=== PATIENT | female | born 1960 | race Caucasian/White ===

== ENCOUNTER 2024-04-23 08:59 | Outpatient (CLI) | payer MEDICARE, OTHER, SELFPAY ==
--- NOTE | 2024-04-23 | CT_ITS ---
CT CALCIUM SCORE REASON FOR VISIT: FAMILY HX OF PREMATURE CHO/HYPERLIPIDEMIA; Coronary artery disease risk assessment COMPARISON: None TECHNIQUE: Noncontrast coronary CT in combination with quantitative analysis performed on a separate workstation were used to determine CACS (Agatston score) TOTAL EXAM DOSE: 34.87 mGy.cm ECG GATING: Prospective SCAN RANGE: Pulmonary artery bifurcation to Inferior aspect of heart COMPLICATIONS: None FINDINGS: Technical Quality/Examination Quality: Good Limitation: None OVERALL SCORES Total calcium score: 218 Total volume score: 201 mm3 Percentile: 75th % ARTERY SCORES Left main coronary artery: 23 Left anterior descending artery: 11 Left circumflex artery: 1 Right coronary artery: 177 PDA: 6 OTHER FINDINGS: Mediastinum: Negative. Thoracic aorta: As visualized mild atherosclerosis. Lungs: As visualized emphysema. Upper Abdomen: Normal. Impression: 1. Total calcium score 218. 2. Total calcium score of the 75th percentile for people of this age and gender. 3. Moderately increased risk for cardiovascular event. GRADING OF CORONARY ARTERY DISEASE (BASED ON TOTAL CALCIUM SCORE) NO EVIDENCE OF CAD: 0 calcium score MINIMAL: 1-10 MILD: 11-100 MODERATE: 101-400 SEVERE:>400 MTDD
== END 2024-04-23 09:00 | disposition home or self-care (01) ==
LOC: RAD 09:04
PROVIDERS: PCP Family Medicine; Visit Provider Family Medicine
DX: Z82.49 Family history of ischemic heart disease and other diseases of the circulatory system (principal); E78.5 Hyperlipidemia, unspecified; J43.9 Emphysema, unspecified
CPT/HCPCS: 75571